=== PATIENT | male | born 1980 | race Caucasian/White ===

== ENCOUNTER 2024-04-01 07:57 | Outpatient (CLI) | payer OTHER ==
[2024-04-01] MEDS ORDERED: Regadenoson 0.4 MG/5 ML SYRINGE ONE (09:53)
== END 2024-04-01 07:58 | disposition home or self-care (01) ==
LOC: NM 07:57
DX: R07.9 Chest pain, unspecified (principal)
CPT/HCPCS: 78452; 93017; A9502; J2785